=== PATIENT | male | born 1940 | race Hispanic/Latino ===

== ENCOUNTER 2018-03-01 04:52 | Emergency (ER) | payer MEDICARE ==
[2018-03-01 05:06] VITALS: BMI 27.3
--- NOTE | 2018-03-01 05:08 | ED PDOC ---
Arrival/HPI - General Time Seen by Provider: 03/01/18 04:55 Historian: Patient - History of Present Illness Narrative History of Present Illness (Text): 03/01/18 05:03 Kathy Aguirre is a 77 year old male, whose past medical history includes diabetes, hypertension, hyperlipidemia, and severe cervical spondylosis/myelopathy, who presents to the Emergency department complaining of palpitations. Patient states he was at home when he felt his heart racing at 03:00 this morning, became concerned when his symptoms did not resolve, and notified EMS. Patient states he had a similar episode 2 months prior after taking medication, which resolved on its own. Patient denies any fever, chills, chest pain, shortness of breath, nausea, back pain, neck pain, headache, dizziness, or any other complaints. PMD: Dr. Grayson Symptom Onset: Gradual Symptom Course: Unchanged Activities at Onset: Light Context: Home Past Medical History - Provider Review Nursing Documentation Reviewed: Yes - Cardiac Hx Hypertension: Yes - Pulmonary Hx Respiratory Disorders: No - Neurological Hx Neurological Disorder: No - HEENT Hx HEENT Disorder: No - Renal Hx Renal Disorder: No - Endocrine/Metabolic Hx Diabetes Mellitus Type 2: Yes - Hematological/Oncological Hx Blood Disorders: No - Integumentary Hx Dermatological Disorder: No - Musculoskeletal/Rheumatological Hx Arthritis: Yes - Gastrointestinal Hx Gastrointestinal Disorders: No - Genitourinary/Gynecological Other/Comment: urinary retention - Psychiatric Hx Depression: Yes Hx Substance Use: No - Surgical History Other/Comment: UMBILICAL HERNIA REPAIR - Anesthesia Hx Anesthesia: Yes (local) - Suicidal Assessment Feels Threatened In Home Enviroment: No Family/Social History - Physician Review Nursing Documentation Reviewed: Yes Family/Social History: Unknown Family HX Smoking Status: Former Smoker Hx Alcohol Use: No Hx Substance Use: No Hx Substance Use Treatment: No Allergies/Home Meds Allergies/Adverse Reactions: Allergies No Known Allergies Allergy (Verified 04/30/16 17:05) Home Medications: Home Meds Medication Instructions Recorded Confirmed Atorvastatin [Lipitor] 10 mg PO HS 04/30/16 05/12/16 Bisacodyl [Dulcolax] 10 mg RC DAILY PRN 04/30/16 05/12/16 Fenofibrate [Tricor] 145 mg PO DAILY 04/30/16 05/12/16 Furosemide [Lasix] 40 mg PO DAILY 04/30/16 05/12/16 Lisinopril [Zestril] 10 mg PO DAILY 04/30/16 05/12/16 Metoprolol Tartrate [Lopressor] 25 mg PO BID 04/30/16 05/12/16 SITagliptin [Januvia] 50 mg PO ACB 04/30/16 05/12/16 Sennosides [Senna] 8.6 mg PO BID 04/30/16 05/12/16 Tamsulosin [Flomax] 0.4 mg PO DAILY 04/30/16 05/12/16 oxyCODONE [oxyCODONE Immediate 15 mg PO Q4 PRN 04/30/16 05/12/16 Release Tab] ALPRAZolam [Xanax] 2 mg PO BID PRN 05/02/16 05/12/16 Aspirin [Aspirin Chewable] 81 mg PO DAILY 05/02/16 05/12/16 Ammonium Lactate 12% [Lac-Hydrin 1 applic EXT TID 05/12/16 05/12/16 12% Lotion (225 g)] Ibuprofen [Motrin Tab] 400 mg PO Q6 PRN 05/12/16 05/12/16 Pantoprazole [Protonix EC Tab] 40 mg PO DAILY 05/12/16 05/12/16 Review of Systems - Physician Review All systems were reviewed & negative as marked: Yes - Review of Systems Constitutional: Normal. absent: Fevers Eyes: Normal ENT: Normal Respiratory: Normal. absent: SOB, Cough Cardiovascular: Palpitations. absent: Chest Pain Gastrointestinal: Normal. absent: Abdominal Pain, Diarrhea, Vomiting Genitourinary Male: Normal. absent: Dysuria, Frequency, Hematuria Musculoskeletal: Normal. absent: Back Pain, Neck Pain Skin: Normal. absent: Rash Neurological: Normal. absent: Headache, Dizziness Endocrine: Normal Hemo/Lymphatic: Normal Psychiatric: Normal Physical Exam Vital Signs Reviewed: Yes Temperature: Afebrile Blood Pressure: Normal Pulse: Tachycardic Respiratory Rate: Normal Appearance: Positive for: Well-Appearing, Non-Toxic, Comfortable Pain Distress: None Mental Status: Positive for: Alert and Oriented X 3 - Systems Exam Head: Present: Atraumatic, Normocephalic Pupils: Present: PERRL Extroacular Muscles: Present: EOMI Conjunctiva: Present: Normal Mouth: Present: Moist Mucous Membranes Neck: Present: Normal Range of Motion Respiratory/Chest: Present: Clear to Auscultation, Good Air Exchange. No: Respiratory Distress, Accessory Muscle Use Cardiovascular: Present: Normal S1, S2, Tachycardic. No: Murmurs Abdomen: No: Tenderness, Distention, Peritoneal Signs Back: Present: Normal Inspection Upper Extremity: Present: Normal Inspection. No: Cyanosis, Edema Lower Extremity: Present: Normal Inspection. No: Edema Neurological: Present: GCS=15, CN II-XII Intact, Speech Normal Skin: Present: Warm, Dry, Normal Color. No: Rashes Psychiatric: Present: Alert, Oriented x 3, Normal Insight, Normal Concentration Medical Decision Making ED Course and Treatment: 03/01/18 05:04 Impression: 77 year old male complaining of palpitations. Plan: -- EKG -- Chest X-ray -- Labs, cardiac enzymes -- Lopressor -- Reassess and disposition Progress Notes: Reviewed EKG, sinus tachycardia at 120. 1st degree AV block. Inferior infarct. Non-specific ST/T wave changes. 03/01/18 05:54 Pt refusing labs, X-rays, or any further evaluation. Pt states he wishes to leave. The patient declines to have further medical evaluation and treatment and wishes to leave the Emergency Department. This action is against my medical advice to the patient, and with informed refusal. The patient was told that evaluation and treatment are necessary and a full explanation of the rationale was given. The risks of leaving were explained to the patient and include, but are not limited to, worsening of known or currently unknown conditions, permanent disability and from undiagnosed or untreated conditions The patient has the capacity to make this informed decision and understands the [facility] situation and my explanation of the risks of leaving. The patient voluntarily accepts these risks, and a signed AMA form documenting our conversation was obtained. The patient was given the opportunity to ask questions and reconsider. The patient was encouraged to return to the Emergency Department at any time for further care. - EKG Interpretation Interpreted by ED Physician: Yes Type: 12 lead EKG - Scribe Statement The provider has reviewed the documentation as recorded by the Charles Dillard Provider Scribe Attestation: All medical record entries made by the Carminaiballey were at my direction and personally dictated by me. I have reviewed the chart and agree that the record accurately reflects my personal performance of the history, physical exam, medical decision making, and the department course for this patient. I have also personally directed, reviewed, and agree with the discharge instructions and disposition. Disposition/Present on Arrival - Present on Arrival Any Indicators Present on Arrival: No History of DVT/PE: No History of Uncontrolled Diabetes: No Urinary Catheter: No - Disposition Have Diagnosis and Disposition been Completed?: Yes Diagnosis: Tachycardia Disposition: AGAINST MEDICAL ADVICE Disposition Time: 06:15 Condition: STABLE Referrals: Dodie Grayson MD [Primary Care Provider] - Follow up with primary Forms: [employer] ([place])
[2018-03-01] MEDS ORDERED: Metoprolol 1 mg/ml Inj IVP STA (05:09)
[2018-03-01 05:10] VITALS: RESP 18; TEMP 98.1; O2SAT 100
[2018-03-01 05:28] LABS: HEMOGLOBIN 14.9 g/dL (14.0-18.0); MEAN CELL VOLUME 87.5 fl (80.0-105.0); MEAN CORPUSCULAR HEMOGLOBIN 29.5 pg (25.0-35.0); MEAN CORPUSCULAR HGB CONC 33.7 g/dl (31.0-37.0); MEAN PLATELET VOLUME 10.5 fl (7.0-11.0); RBC 5.05 10^6/uL (3.5-6.1); RED CELL DISTRIBUTION WIDTH 12.6 % (11.5-14.5); WHITE BLOOD COUNT 9.6 10^3/uL (4.5-11.0)
[2018-03-01 05:40] LABS: ALB/GLOB RATIO 1.4 (1.1-1.8); ALBUMIN 4.5 g/dL (3.0-4.8); BLOOD UREA NITROGEN 25 mg/dL (7-21); CALCIUM 9.2 mg/dL (8.4-10.5); GFR NON-AFRICAN AMERICAN > 60
[2018-03-01 05:46] LABS: INR 0.88; PARTIAL THROMBOPLASTIN TIME 30.8 Seconds (25.1-36.5)
[2018-03-01 05:51] LABS: TROPONIN I < 0.01 ng/mL
[2018-03-01 06:14] VITALS: BP 115/72; PULSE 77
[2018-03-01 06:42] LABS: ALT/SGPT 41 U/L (7-56); AST/SGOT 48 U/L (17-59)
--- NOTE | 2018-03-01 12:39 | CARD ---
APPROVED REPORT Date of service: 03/01/2018 EKG Measurement Heart [id number] <Conclusion> Sinus tachycardia with 1st degree AV block Inferior infarct, age undetermined Abnormal ECG
== END 2018-03-01 06:20 | disposition left against medical advice (07) ==
LOC: ED 04:52
DX: R00.0 Tachycardia, unspecified (principal); I10 Essential (primary) hypertension; E78.5 Hyperlipidemia, unspecified; Z87.891 Personal history of nicotine dependence

== ENCOUNTER 2018-03-29 01:16 | Emergency (ER) | payer MEDICARE ==
[2018-03-29 01:27] VITALS: BMI 27.2
[2018-03-29] MEDS ORDERED: Metoprolol 1 mg/ml Inj IVP STA (02:07)
--- NOTE | 2018-03-29 02:10 | ED PDOC ---
Arrival/HPI - General Chief Complaint: Palpitations Time Seen by Provider: 03/29/18 01:24 Historian: Patient - History of Present Illness Narrative History of Present Illness (Text): 03/29/18 02:06 Kathy Aguirre is a 77 year old male, whose past medical history includes diabetes, hypertension, hyperlipidemia, and severe cervical spondylosis/myelopathy, who presents to the Emergency department brought in by EMS complaining of palpitations. Patient states he was sitting at home when he began experiencing a rapid heart rate. Patient notes he has a heart monitor at home and reports his heart rate was in the 120s. Patient states he has experienced similar symptoms in the past and is requesting intravenous medication like in the past. Patient denies any fever, chills, chest pain, shortness of breath, nausea, neck pain, headache, dizziness, or any other complaints. PMD: Dr. Grayson Symptom Onset: Gradual Symptom Course: Unchanged Activities at Onset: Light Context: Home Past Medical History - Provider Review Nursing Documentation Reviewed: Yes - Cardiac Hx Hypertension: Yes - Pulmonary Hx Respiratory Disorders: No - Neurological Hx Neurological Disorder: No - HEENT Hx HEENT Disorder: No - Renal Hx Renal Disorder: No - Endocrine/Metabolic Hx Diabetes Mellitus Type 2: Yes - Hematological/Oncological Hx Blood Disorders: No - Integumentary Hx Dermatological Disorder: No - Musculoskeletal/Rheumatological Hx Arthritis: Yes - Gastrointestinal Hx Gastrointestinal Disorders: No - Genitourinary/Gynecological Other/Comment: urinary retention - Psychiatric Hx Depression: Yes Hx Substance Use: No - Surgical History Other/Comment: UMBILICAL HERNIA REPAIR - Anesthesia Hx Anesthesia: Yes (local) - Suicidal Assessment Feels Threatened In Home Enviroment: No Family/Social History - Physician Review Nursing Documentation Reviewed: Yes Family/Social History: Unknown Family HX Smoking Status: Former Smoker Hx Alcohol Use: No Hx Substance Use: No Hx Substance Use Treatment: No Allergies/Home Meds Allergies/Adverse Reactions: Allergies No Known Allergies Allergy (Verified 03/29/18 01:27) Home Medications: Home Meds Medication Instructions Recorded Confirmed Atorvastatin [Lipitor] 10 mg PO HS 04/30/16 03/29/18 Fenofibrate [Tricor] 145 mg PO DAILY 04/30/16 03/29/18 Furosemide [Lasix] 40 mg PO DAILY 04/30/16 03/29/18 Lisinopril [Zestril] 10 mg PO DAILY 04/30/16 03/29/18 Metoprolol Tartrate [Lopressor] 25 mg PO BID 04/30/16 03/29/18 SITagliptin [Januvia] 50 mg PO ACB 04/30/16 03/29/18 Tamsulosin [Flomax] 0.4 mg PO DAILY 04/30/16 03/29/18 oxyCODONE [oxyCODONE Immediate 15 mg PO Q4 PRN 04/30/16 03/29/18 Release Tab] ALPRAZolam [Xanax] 2 mg PO BID PRN 05/02/16 03/29/18 Aspirin [Aspirin Chewable] 81 mg PO DAILY 05/02/16 03/29/18 Ammonium Lactate 12% [Lac-Hydrin 1 applic EXT TID 05/12/16 03/29/18 12% Lotion (225 g)] Ibuprofen [Motrin Tab] 400 mg PO Q6 PRN 05/12/16 03/29/18 Pantoprazole [Protonix EC Tab] 40 mg PO DAILY 05/12/16 03/29/18 Review of Systems - Physician Review All systems were reviewed & negative as marked: Yes - Review of Systems Constitutional: Normal. absent: Fevers Eyes: Normal ENT: Normal Respiratory: Normal. absent: SOB, Cough Cardiovascular: Palpitations. absent: Chest Pain Gastrointestinal: Normal. absent: Abdominal Pain, Diarrhea, Nausea, Vomiting Genitourinary Male: Normal. absent: Dysuria, Frequency, Hematuria, Urinary Output Changes Musculoskeletal: Normal. absent: Back Pain, Neck Pain Skin: Normal. absent: Rash Neurological: Normal. absent: Headache, Dizziness Endocrine: Normal Hemo/Lymphatic: Normal Psychiatric: Normal Physical Exam Vital Signs Reviewed: Yes Temperature: Afebrile Blood Pressure: Normal Pulse: Tachycardic Respiratory Rate: Normal Appearance: Positive for: Well-Appearing, Non-Toxic, Comfortable Pain Distress: None Mental Status: Positive for: Alert and Oriented X 3 - Systems Exam Head: Present: Atraumatic, Normocephalic Pupils: Present: PERRL Extroacular Muscles: Present: EOMI Conjunctiva: Present: Normal Mouth: Present: Moist Mucous Membranes Neck: Present: Normal Range of Motion Respiratory/Chest: Present: Clear to Auscultation, Good Air Exchange. No: Respiratory Distress, Accessory Muscle Use Cardiovascular: Present: Normal S1, S2, Tachycardic. No: Murmurs Abdomen: No: Tenderness, Distention, Peritoneal Signs Back: Present: Normal Inspection Upper Extremity: Present: Normal Inspection. No: Cyanosis, Edema Lower Extremity: Present: Normal Inspection. No: Edema Neurological: Present: GCS=15, CN II-XII Intact, Speech Normal Skin: Present: Warm, Dry, Normal Color. No: Rashes Psychiatric: Present: Alert, Oriented x 3, Normal Insight, Normal Concentration Medical Decision Making ED Course and Treatment: 03/29/18 02:06 Impression: 77 year old male complaining of rapid heart rate. Plan: -- EKG -- Chest X-ray -- Labs, cardiac enzymes -- Lopressor -- Reassess and disposition Prior Visits: Notes and results from previous visits were reviewed. On 03/01/2018, pt was seen in the Emergency department for palpitations. Pt left against medical advice. Progress Notes: Reviewed EKG, sinus tachycardia at 120 bpm. Inferior infarct. Non-specific ST/T wave changes. 03/29/18 02:17 As per RN, pt is refusing Chest X-ray. 03/29/18 03:02 Pt with spontaneous return to normal sinus rhythm. Pt refusing to stay, states he wants to leave and does not wish to wait for his lab results. Pt was advised the risk of leaving against medical advise but still wants to leave. The patient declines to have further medical evaluation and treatment and wishes to leave the Emergency Department. This action is against my medical advice to the patient, and with informed refusal. The patient was told that evaluation and treatment are necessary and a full explanation of the rationale was given. The risks of leaving were explained to the patient and include, but are not limited to, worsening of known or currently unknown conditions, permanent disability and from undiagnosed or untreated conditions The patient has the capacity to make this informed decision and understands the clinical situation and my explanation of the risks of leaving. The patient voluntarily accepts these risks, and a signed AMA form documenting our conversation was obtained. The patient was given the opportunity to ask questions and reconsider. The patient was encouraged to return to the Emergency Department at any time for further care. - Scribe Statement The provider has reviewed the documentation as recorded by the Charles Dillard Provider Scribe Attestation: All medical record entries made by the Scribe were at my direction and personally dictated by me. I have reviewed the chart and agree that the record accurately reflects my personal performance of the history, physical exam, medical decision making, and the department course for this patient. I have also personally directed, reviewed, and agree with the discharge instructions and disposition. Disposition/Present on Arrival - Present on Arrival Any Indicators Present on Arrival: No History of DVT/PE: No History of Uncontrolled Diabetes: No Urinary Catheter: No History of Decub. Ulcer: No History Surgical Site Infection Following: None - Disposition Have Diagnosis and Disposition been Completed?: Yes Diagnosis: Tachycardia Disposition: AGAINST MEDICAL ADVICE Disposition Time: 03:12 Patient Problems: Current Active Problems Problem Status Onset Tachycardia Acute Condition: STABLE Discharge Instructions (ExitCare): Tachycardia Referrals: Dodie Grayson MD [Primary Care Provider] - Follow up with primary Forms: [employer] (Danish)
[2018-03-29 02:42] LABS: HEMOGLOBIN 14.4 g/dL (14.0-18.0); MEAN CELL VOLUME 87.6 fl (80.0-105.0); MEAN CORPUSCULAR HEMOGLOBIN 29.9 pg (25.0-35.0); MEAN CORPUSCULAR HGB CONC 34.1 g/dl (31.0-37.0); MEAN PLATELET VOLUME 10.1 fl (7.0-11.0); RBC 4.82 10^6/uL (3.5-6.1); RED CELL DISTRIBUTION WIDTH 12.8 % (11.5-14.5); WHITE BLOOD COUNT 7.5 10^3/uL (4.5-11.0)
[2018-03-29 02:49] LABS: INR 0.89; PARTIAL THROMBOPLASTIN TIME 28.9 Seconds (25.1-36.5); PROTHROMBIN TIME 10.1 SECONDS (9.4-12.5)
[2018-03-29 03:02] LABS: TROPONIN I < 0.01 ng/mL
[2018-03-29 03:22] LABS: ALB/GLOB RATIO 1.4 (1.1-1.8); ALBUMIN 4.2 g/dL (3.0-4.8); ALT/SGPT 26 U/L (7-56); AST/SGOT 23 U/L (17-59); BLOOD UREA NITROGEN 26 mg/dL (7-21); CALCIUM 9.1 mg/dL (8.4-10.5); GFR NON-AFRICAN AMERICAN > 60
[2018-03-29 07:21] VITALS: RESP 18; O2SAT 96
[2018-03-29 07:24] VITALS: BP 110/62; PULSE 79; TEMP 97.9
--- NOTE | 2018-03-29 20:38 | CARD ---
APPROVED REPORT Date of service: 03/29/2018 EKG Measurement Heart [id number] <Conclusion> Sinus tachycardia with 1st degree AV block Possible Inferior infarct, age undetermined Abnormal ECG
== END 2018-03-29 03:15 | disposition left against medical advice (07) ==
LOC: ED 01:16
DX: R00.0 Tachycardia, unspecified (principal); I10 Essential (primary) hypertension; E78.5 Hyperlipidemia, unspecified; E11.9 Type 2 diabetes mellitus without complications; Z87.891 Personal history of nicotine dependence

== ENCOUNTER 2018-04-01 22:04 | Emergency (ER) | payer MEDICARE ==
[2018-04-01 22:04] VITALS: BMI 27.2
[2018-04-01] MEDS ORDERED: Metoprolol 1 mg/ml Inj IVP STA (22:19)
--- NOTE | 2018-04-01 22:20 | ED PDOC ---
Arrival/HPI - General Chief Complaint: Palpitations Time Seen by Provider: 04/01/18 22:07 Historian: Patient - History of Present Illness Narrative History of Present Illness (Text): 04/01/18 22:20 77 year old male, whose past medical history includes diabetes, hypertension, hyperlipidemia, and severe cervical spondylosis/myelopathy, who presents to the Emergency department complaining of palpitations this evening. Patient has been to the emergency department several times for similar symptoms. Patient requesting IV Lopressor, states it helps him every time he experiences an increased heart rate. Patient would like to leave after. Patient denies any fevers, chills, chest pain, shortness of breath, abdominal pain, nausea, vomiting, diarrhea, back pain, neck pain, headache, dizziness, or any other complaint. Time/Duration: 4-6 hours Symptom Onset: Gradual Symptom Course: Unchanged Activities at Onset: Light Context: Home Past Medical History - Provider Review Nursing Documentation Reviewed: Yes - Infectious Disease Hx of Infectious Diseases: None - Cardiac Hx Hypertension: Yes - Pulmonary Hx Respiratory Disorders: No - Neurological Hx Neurological Disorder: No - HEENT Hx HEENT Disorder: No - Renal Hx Renal Disorder: No - Endocrine/Metabolic Hx Diabetes Mellitus Type 2: Yes - Hematological/Oncological Hx Blood Disorders: No - Integumentary Hx Dermatological Disorder: No - Musculoskeletal/Rheumatological Hx Arthritis: Yes - Gastrointestinal Hx Gastrointestinal Disorders: No - Genitourinary/Gynecological Other/Comment: urinary retention - Psychiatric Hx Depression: Yes Hx Substance Use: No - Surgical History Other/Comment: UMBILICAL HERNIA REPAIR - Anesthesia Hx Anesthesia: Yes (local) - Suicidal Assessment Feels Threatened In Home Enviroment: No Family/Social History - Physician Review Nursing Documentation Reviewed: Yes Family/Social History: Unknown Family HX Smoking Status: Former Smoker Hx Alcohol Use: No Hx Substance Use: No Hx Substance Use Treatment: No Allergies/Home Meds Allergies/Adverse Reactions: Allergies No Known Allergies Allergy (Verified 03/29/18 01:27) Home Medications: Home Meds Medication Instructions Recorded Confirmed Atorvastatin [Lipitor] 10 mg PO HS 04/30/16 03/29/18 Fenofibrate [Tricor] 145 mg PO DAILY 04/30/16 03/29/18 Furosemide [Lasix] 40 mg PO DAILY 04/30/16 03/29/18 Lisinopril [Zestril] 10 mg PO DAILY 04/30/16 03/29/18 Metoprolol Tartrate [Lopressor] 25 mg PO BID 04/30/16 03/29/18 SITagliptin [Januvia] 50 mg PO ACB 04/30/16 03/29/18 Tamsulosin [Flomax] 0.4 mg PO DAILY 04/30/16 03/29/18 oxyCODONE [oxyCODONE Immediate 15 mg PO Q4 PRN 04/30/16 03/29/18 Release Tab] ALPRAZolam [Xanax] 2 mg PO BID PRN 05/02/16 03/29/18 Aspirin [Aspirin Chewable] 81 mg PO DAILY 05/02/16 03/29/18 Ammonium Lactate 12% [Lac-Hydrin 1 applic EXT TID 05/12/16 03/29/18 12% Lotion (225 g)] Ibuprofen [Motrin Tab] 400 mg PO Q6 PRN 05/12/16 03/29/18 Pantoprazole [Protonix EC Tab] 40 mg PO DAILY 05/12/16 03/29/18 Review of Systems - Physician Review All systems were reviewed & negative as marked: Yes - Review of Systems Constitutional: Normal Eyes: Normal ENT: Normal Respiratory: Normal. absent: SOB, Cough Cardiovascular: Palpitations. absent: Chest Pain Gastrointestinal: Normal. absent: Abdominal Pain, Diarrhea, Nausea, Vomiting Genitourinary Male: Normal. absent: Frequency, Hematuria Musculoskeletal: Normal. absent: Back Pain, Neck Pain Skin: Normal. absent: Rash Neurological: Normal. absent: Headache, Dizziness Endocrine: Normal Hemo/Lymphatic: Normal Psychiatric: Normal Physical Exam - Systems Exam Head: Present: Atraumatic, Normocephalic Pupils: Present: PERRL Extroacular Muscles: Present: EOMI Conjunctiva: Present: Normal Mouth: Present: Moist Mucous Membranes Neck: Present: Normal Range of Motion Respiratory/Chest: Present: Clear to Auscultation, Good Air Exchange. No: Respiratory Distress, Accessory Muscle Use Cardiovascular: Present: Normal S1, S2, Tachycardic. No: Murmurs Abdomen: No: Tenderness, Distention, Peritoneal Signs Back: Present: Normal Inspection Upper Extremity: Present: Normal Inspection. No: Cyanosis, Edema Lower Extremity: Present: Normal Inspection. No: Edema Neurological: Present: GCS=15, CN II-XII Intact, Speech Normal Skin: Present: Warm, Dry, Normal Color. No: Rashes Psychiatric: Present: Alert, Oriented x 3, Normal Insight, Normal Concentration Medical Decision Making ED Course and Treatment: 04/01/18 22:25 Impression: 77 year old male presents to the Emergency department complaining of palpitations this evening. Plan: -- EKG -- Labs -- Chest X-ray - Lopressor -- Reassess and disposition Progress Notes: EKG reviewed, shows Sinus tachycardia at 121bpm. First degree AV block. Non specific ST/T wave changes. 04/01/18 22:44 Pt refusing lab workup/completion of ER evaluation. Pt experienced spontaneous return to normal heart rate. Insisting on wanting to leave. Pt understands risks in leaving including possible but states he will sign out AMA as he has done in the past. Pt states he will f/u with his mechanical planner.He is strongly advised to return if symptomatic. - RAD Interpretation Radiology Orders: 04/01/18 22:16 CHEST PORTABLE [RAD] Stat - Scribe Statement The provider has reviewed the documentation as recorded by the Scriballey Barth All medical record entries made by the Scribe were at my direction and personally dictated by me. I have reviewed the chart and agree that the record accurately reflects my personal performance of the history, physical exam, medical decision making, and the department course for this patient. I have also personally directed, reviewed, and agree with the discharge instructions and disposition. Disposition/Present on Arrival - Present on Arrival Any Indicators Present on Arrival: No History of DVT/PE: No History of Uncontrolled Diabetes: No Urinary Catheter: No History of Decub. Ulcer: No History Surgical Site Infection Following: None - Disposition Have Diagnosis and Disposition been Completed?: Yes Diagnosis: Tachycardia Disposition: AGAINST MEDICAL ADVICE Disposition Time: 22:50 Condition: STABLE Forms: [employer] (Sri Lankan)
[2018-04-01 22:23] VITALS: TEMP 98.2
[2018-04-01 23:04] VITALS: BP 108/71; PULSE 73; RESP 18; O2SAT 100
--- NOTE | 2018-04-02 18:46 | CARD ---
APPROVED REPORT Date of service: 04/01/2018 EKG Measurement Heart [id number] <Conclusion> Sinus tachycardia with 1st degree AV block Inferior infarct, age undetermined Abnormal ECG
== END 2018-04-01 22:45 | disposition left against medical advice (07) ==
LOC: ED 22:04
DX: R00.0 Tachycardia, unspecified (principal); E11.9 Type 2 diabetes mellitus without complications; E78.5 Hyperlipidemia, unspecified; I10 Essential (primary) hypertension; Z87.891 Personal history of nicotine dependence